=== PATIENT | female | born 1995 | race Caucasian/White ===

== ENCOUNTER 2021-09-29 21:25 | Inpatient (IN) | payer OTHER ==
[~2021-09-29] VITALS: Ht 170.2 cm; Wt 80.3 kg
--- NOTE | 2021-09-30 06:16 | PR ---
[facility] [address] [place] [facility] [place], [place] [address] Signed Progress Notes IP Datetime Report Generated by CPN: 09/30/2021 06:16 PROGRESS NOTES: [id number] Other Impressions: Slow Progress Procedures: Intrauterine Pressure Catheter; Scalp Electrode Plan: Augmentation VITAL SIGNS: [id number] Vital Signs: Reviewed; Within Normal Limits EXAM: [id number] Dilatation: 7.0 Effacement: 95 Station: 0 Contractions: every 3-4 minutes MEMBRANES: [id number] Membranes Status: Ruptured Comments: Patient comfortable with Epidural, started on Pitocin since contracitons spacing out, but now not picking up well, so internal monitors applied. Head well applied to cervix with swelling of anterior lip, and some caput already. Will try changing positions. FETUS A: [id number] FHR Baseline: 140 Variability: Moderate 6-25bpm Accelerations: 15X15 FETUS B: [id number] Signing Physician: Maranda Dave MD Copies: ~ *Electronically Signed* 09/30/21 0616 MARANDA DAVE MD PATIENT NAME: SUNNY BRADSHAW PROGRESS NOTE DATE OF : 95 PHYSICIAN: MARANDA DAVE MD RPT #: [id number] REPORT IS CONFIDENTIAL AND NOT TO BE RELEASED WITHOUT AUTHORIZATION
--- NOTE | 2021-09-30 07:21 | PR ---
[facility] [address] [facility] [place], [place] [address] Signed Progress Notes IP Datetime Report Generated by CPN: 09/30/2021 07:21 PROGRESS NOTES: [id number] Impression: Normal Progression of Labor Other Impressions: Slow Progress Procedures: Intrauterine Pressure Catheter; Scalp Electrode Plan: Continue Present Management; Anticipate Vaginal Delivery VITAL SIGNS: [id number] Vital Signs: Reviewed; Within Normal Limits EXAM: [id number] Dilatation: 8.0 Effacement: 90 Station: 0 Contractions: every 3-4 minutes MEMBRANES: [id number] Membranes Status: Ruptured Comments: Comfortable with Epidural, thickened anterior lip now resolved. Continue monitoring FETUS A: [id number] FHR Baseline: 140 Variability: Moderate 6-25bpm Accelerations: 15X15 FETUS B: [id number] Signing Physician: Maranda Dave MD Copies: ~ *Electronically Signed* 09/30/21720 MARANDA DAVE MD PATIENT NAME: SUNNY BRADSHAW PROGRESS NOTE DATE OF : 95 PHYSICIAN: MARANDA DAVE MD RPT #: [id number] REPORT IS CONFIDENTIAL AND NOT TO BE RELEASED WITHOUT AUTHORIZATION
--- NOTE | 2021-09-30 09:12 | PR ---
[facility] [address] [facility] [place], [place] [address] Signed Progress Notes IP Datetime Report Generated by CPN: 09/30/2021 09:11 PROGRESS NOTES: [id number] Impression: Normal Progression of Labor Other Impressions: Slow Progress Procedures: Intrauterine Pressure Catheter; Scalp Electrode Plan: Anticipate Vaginal Delivery VITAL SIGNS: [id number] Vital Signs: Reviewed; Within Normal Limits EXAM: [id number] Dilatation: 8.0 Effacement: 90 Station: 0 Contractions: every 3-4 minutes MEMBRANES: [id number] Membranes Status: Ruptured Comments: Patient comfortable with Epidural. Will have patietn start pushing. FETUS A: [id number] FHR Baseline: 140 Variability: Moderate 6-25bpm Accelerations: 15X15 FETUS B: [id number] Signing Physician: Maranda Dave MD Copies: ~ *Electronically Signed* 09/30/21910 MARANDA DAVE MD PATIENT NAME: SUNNY BRADSHAW PROGRESS NOTE DATE OF : 95 PHYSICIAN: MARANDA DAVE MD RPT #: [id number] REPORT IS CONFIDENTIAL AND NOT TO BE RELEASED WITHOUT AUTHORIZATION
--- NOTE | 2021-09-30 10:08 | PR ---
[facility] [address] [facility] [place], [place] [address] Signed Progress Notes IP Datetime Report Generated by CPN: 09/30/2021 10:08 PROGRESS NOTES: [id number] Impression: Normal Progression of Labor Other Impressions: Slow Progress Procedures: Intrauterine Pressure Catheter; Scalp Electrode Plan: Continue Present Management; Anticipate Vaginal Delivery VITAL SIGNS: [id number] Vital Signs: Reviewed; Within Normal Limits EXAM: [id number] Dilatation: 10.0 Effacement: 100 Station: 0 Contractions: every 3-4 minutes MEMBRANES: [id number] Membranes Status: Ruptured Comments: Pushing well, comfortable with Epidural. Seems to be LOP rotating to ISAAC. FETUS A: [id number] FHR Baseline: 140 Variability: Moderate 6-25bpm Accelerations: 15X15 FETUS B: [id number] Signing Physician: Romie Dave MD Copies: ~ *Electronically Signed* 09/30/21 1008 ROMIE DAVE MD PATIENT NAME: SUNNY BRADSHAW PROGRESS NOTE DATE OF : 95 PHYSICIAN: ROMIE DAVE MD RPT #: [id number] REPORT IS CONFIDENTIAL AND NOT TO BE RELEASED WITHOUT AUTHORIZATION
--- NOTE | 2021-09-30 10:41 | PR ---
[facility] [address] [facility] [place], [place] [address] Signed Progress Notes IP Datetime Report Generated by CPN: 09/30/2021 10:41 PROGRESS NOTES: [id number] Impression: Normal Progression of Labor Other Impressions: Slow Progress Procedures: Intrauterine Pressure Catheter; Scalp Electrode Plan: Continue Present Management; Anticipate Vaginal Delivery VITAL SIGNS: [id number] Vital Signs: Reviewed; Within Normal Limits EXAM: [id number] Dilatation: 10.0 Effacement: 100 Station: 0 Contractions: every 3-4 minutes MEMBRANES: [id number] Membranes Status: Ruptured Comments: Pushing well, will continue pushing FETUS A: [id number] FHR Baseline: 140 Variability: Moderate 6-25bpm Accelerations: 15X15 FETUS B: [id number] Signing Physician: Maradna Dave MD Copies: ~ *Electronically Signed* 09/30/21 104 MARANDA DAVE MD PATIENT NAME: SUNNY BRADSHAW PROGRESS NOTE DATE OF : 95 PHYSICIAN: MARANDA DAVE MD RPT #: [id number] REPORT IS CONFIDENTIAL AND NOT TO BE RELEASED WITHOUT AUTHORIZATION
--- NOTE | 2021-10-01 08:32 | PR ---
[facility] [address] [facility] [place] [address] Signed PP Progress Notes Datetime Report Generated by CPN: 10/01/2021 08:32 SUBJECTIVE: [id number] Pain: Within Normal Limits Nausea/Vomiting: Denies Vital Signs: [id number] Vital Signs: Reviewed; Within Normal Limits Notable Details: PP Hgb/Hct = 10.2/30.2 Abdomen/Uterus: Normal Lochia: Normal Extremities: Normal IMPRESSION/PLAN/PROCEDURES: [id number] Impression: Normal Progression Plan: Continue Present Management Procedures: None Progress Notes: Doing well, without complaint, voiding without difficulty, up moving arouind, tolerating food. Signing Physician: Maranda Dave MD Copies: ~ *Electronically Signed* 10/01/21 0832 MARANDA DAVE MD PATIENT NAME: SUNNY BRADSHAW PROGRESS NOTE DATE OF : 95 PHYSICIAN: MARANDA DAVE MD RPT #: [id number] REPORT IS CONFIDENTIAL AND NOT TO BE RELEASED WITHOUT AUTHORIZATION
--- NOTE | 2021-10-01 09:38 | PR ---
[facility] [address] [facility] [place], [place] [address] Signed PP Progress Notes Datetime Report Generated by CPN: 10/01/2021 09:38 SUBJECTIVE: [id number] Pain: Within Normal Limits Pain Comments: No sudden increase in pain, just steady soreness of perineum Nausea/Vomiting: Denies Vital Signs: [id number] Vital Signs: Reviewed; Within Normal Limits Notable Details: Hematoma noted by RN during evaluation Abdomen/Uterus: Normal Lochia: Normal Vulva/Perineum: Abnormal Extremities: Normal Exam Comments: small hematoma right vulva 6-8 o'clock (2 x 4 cm), soft, sligntly tender, no extension into vagina, no active bleeding IMPRESSION/PLAN/PROCEDURES: [id number] Impression: Normal Progression Other Impression: PP Hematoma Plan: Continue Present Management Procedures: None Progress Notes: Discussed findings and plan; will follow, keep ice pack and Witch Meri pads, avoid excesisve movement Does not appear to need surgical intervention at this time, but will continue to monitor. Signing Physician: Romie Dave MD Copies: ~ *Electronically Signed* 10/01/21 0938 ROMIE DAVE MD PATIENT NAME: SUNNY BRADSHAW PROGRESS NOTE DATE OF : 95 PHYSICIAN: ROMIE DAVE MD RPT #: [id number] REPORT IS CONFIDENTIAL AND NOT TO BE RELEASED WITHOUT AUTHORIZATION
--- NOTE | 2021-10-02 12:45 | PR ---
[facility] [address] [facility] [place], [place] [address] Signed PP Progress Notes Datetime Report Generated by CPN: 10/02/2021 12:45 SUBJECTIVE: [id number] Pain: Within Normal Limits Pain Comments: No sudden increase in pain, just steady soreness of perineum Nausea/Vomiting: Denies Vital Signs: [id number] Vital Signs: Reviewed; Within Normal Limits Notable Details: Hematoma noted by RN during evaluation Abdomen/Uterus: Normal Lochia: Normal Vulva/Perineum: Abnormal Extremities: Normal Exam Comments: small right perineal hematoma, seems slightly better than yesterday IMPRESSION/PLAN/PROCEDURES: [id number] Impression: Normal Progression Other Impression: PP Hematoma, resolving Plan: Discharge Procedures: None Progress Notes: Doing well, without complaint, no pain in area of hematoma, would like to go home. Signing Physician: Maranda Dave MD Copies: ~ *Electronically Signed* 10/02/21 1245 MARANDA DAVE MD PATIENT NAME: SUNNY BRADSHAW PROGRESS NOTE DATE OF : 95 PHYSICIAN: MARANDA DAVE MD RPT #: [id number] REPORT IS CONFIDENTIAL AND NOT TO BE RELEASED WITHOUT AUTHORIZATION
== END 2021-10-02 13:00 | disposition home or self-care (01) | DRG 806 ==
LOC: FBCO 21:25 → FBC 21:48
PROVIDERS: ADMIT General Practice; ATTEND General Practice
PROC: 10E0XZZ Delivery of Products of Conception, External Approach (ICD-10-PCS; principal; 2021-09-29)
PROC: 00HU33Z Insertion of Infusion Device into Spinal Canal, Percutaneous Approach (ICD-10-PCS; 2021-09-29)
PROC: 3E0R33Z Introduction of Anti-inflammatory into Spinal Canal, Percutaneous Approach (ICD-10-PCS; 2021-09-29)
PROC: 10H07YZ Insertion of Other Device into Products of Conception, Via Natural or Artificial Opening (ICD-10-PCS; 2021-09-29)
PROC: 3E0R3BZ Introduction of Anesthetic Agent into Spinal Canal, Percutaneous Approach (ICD-10-PCS; 2021-09-29)
PROC: 0HQ9XZZ Repair Perineum Skin, External Approach (ICD-10-PCS; 2021-09-29)
DX: O48.0 Post-term pregnancy (principal); O71.7 Obstetric hematoma of pelvis; Z37.0 Single live birth; Z20.822 Contact with and (suspected) exposure to COVID-19; Z3A.40 40 weeks gestation of pregnancy; O70.0 First degree perineal laceration during delivery; Z67.40 Type O blood, Rh positive
CPT/HCPCS: 01960; 36415; 85027; 86850; 86900; 86901; 87502; A9270; J2001; J2590; J2795; J7121; U0003

== ENCOUNTER 2024-12-01 11:25 | Emergency (ER) | payer OTHER ==
[~2024-12-01] VITALS: Ht 182.9 cm; Wt 63.9 kg
[2024-12-01 11:57] LABS: BASOPHILS 0.6 % (0.1-1.2); EOSINOPHILS 0.8 % (0.7-5.8); LYMPHOCYTES 19.8 % (19.3-51.7); MCH 30.3 PG (25.6-32.2); MCHC 34.7 g/dL (32.2-35.5); MCV 87.3 fL (79.4-94.8); MONOCYTES 9.8 % (4.7-12.5); NEUTROPHILS 68.8 % (34.0-71.1); RBC 4.00 M/uL (3.93-5.22)
[2024-12-01] MEDS ORDERED: SODIUM CHLORIDE 0.9% 1,000 ML IV ONE (12:00)
[2024-12-01] MEDS ORDERED: LOPERAMIDE HCL 2 MG CAP PO ONE (12:00)
[2024-12-01 12:13] LABS: ALT (SGPT) 29.0 U/L (14-59); AST (SGOT) 12.0 U/L (15-37); GLOMERULAR FILTRATION RATE,EST 105.0 mL/min (>60); PROTEIN, TOTAL 7.2 g/dL (6.4-8.2); UREA NITROGEN 8.0 mg/dL (7-18)
[2024-12-01] MEDS ORDERED: ONDANSETRON ODT8 MG PO (13:40)
[2024-12-01 14:27] VITALS: BP 94/58
== END 2024-12-01 14:27 | disposition home or self-care (01) ==
LOC: ED 11:25
PROVIDERS: Emergency Medicine
DX: K52.9 Noninfective gastroenteritis and colitis, unspecified (principal); Z88.3 Allergy status to other anti-infective agents
CPT/HCPCS: 36415; 80053; 83690; 84703; 85025; 96360; 99284-25; J7030